=== PATIENT | male | born 1980 | race Two or more races ===

== ENCOUNTER 2024-04-22 06:40 | Day surgery (SDC) | payer MEDICAID, SELFPAY ==
[2024-04-22] VITALS (9 sets, daily range): BP systolic 111–152; BP diastolic 63–88; PULSE 62–98; RESP 10–20; TEMP 36.2–36.3; O2SAT 93–100; BMI 21.3
[2024-04-22] MEDS: SODIUM CHLORIDE 0.9% 500 ML 500 ML 100 ML IV (07:24)
[2024-04-22] MEDS: DiphenhydrAMINE INJ 50 MG/ML VIAL 25 MG IV (07:26)
[2024-04-22] MEDS: fentaNYL CIT INJ 50 mCg/ML AMP 2ML (ASD USE ONLY) IV (07:27)
[2024-04-22] MEDS: MIDAZOLAM INJ 1 MG/ML VIAL 2 ML (ASD USE ONLY) 2 MG IV (07:31)
== END 2024-04-22 08:29 | disposition home or self-care (01) ==
PROVIDERS: Referring Provider Surgery; Visit Provider Surgery
PROC: 0DBE8ZX Excision of Large Intestine, Via Natural or Artificial Opening Endoscopic, Diagnostic (ICD-10-PCS; CPT 45380; principal; 2024-04-22 08:00)
DX: C18.7 Malignant neoplasm of sigmoid colon (principal); D12.0 Benign neoplasm of cecum; D12.4 Benign neoplasm of descending colon; K56.690 Other partial intestinal obstruction; D64.9 Anemia, unspecified
CPT/HCPCS: 45380; 45385; 45381; A4649; J1200; J2250; J3010; J7040

== ENCOUNTER → 2024-05-06 | Outpatient (CLI) | payer MEDICAID, SELFPAY ==
--- NOTE | 2024-05-06 10:48 | XR_ITS ---
Examination: CT abdomen with intravenous contrast CT pelvis with intravenous contrast 2-D coronal reconstructions 2-D sagittal reconstructions Date and time of exam:May 06, 2024 1152 hrs. Indications: Diagnosis malignant neoplasm colon on colonoscopy April 23, 2024, staging, pelvic pain 6 months. CTDI: vol (mGy) 15 DLP: (mGycm) 510 Technique: Multiple axial sections of the abdomen and pelvis have been obtained. 64 slice high-resolution scanner used. 3 mm axial sections have been obtained, post intravenous injection 60 cc Isovue-370 2-D sagittal, coronal reconstructions obtained. Low dose protocols were performed. One or more of the following dose reduction techniques were used; automated exposure control, adjustment of the mA and/or KV according to patient size, use of iterative reconstruction technique. Findings: No focal liver or splenic lesions No adrenal or pancreatic mass No periaortic pericaval lymphadenopathy Negative for hydronephrosis Normal appendix Masslike area in the sigmoid colon axial image 162, transverse dimension 3.7 cm, proximal distal dimension 3.8 cm with numerous perirectal lymph nodes, the largest 8 mm Contracted urinary bladder Mild osteopenia Impression: Masslike area in the sigmoid colon, axial image 162, 3.7 x 3.8 cm with numerous perirectal lymph nodes, the largest 8 mm, consider PET CT scan staging follow-up
== END | disposition home or self-care (01) ==
PROVIDERS: PCP Physician Assistant; Referring Provider Surgery; Visit Provider Surgery
DX: K63.89 Other specified diseases of intestine (principal); C18.7 Malignant neoplasm of sigmoid colon
CPT/HCPCS: 74177; A4649; Q9967

== ENCOUNTER 2024-05-19 10:05 | Inpatient (IN) | payer MEDICAID, SELFPAY ==
--- NOTE | 2024-05-15 07:01 | EKG_ITS ---
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
[2024-05-15 10:35] VITALS: BMI 24.6
[2024-05-15 11:42] LABS: Basophils # (Auto) 0.1 Thou/mm3 (0.0-0.2); Basophils % (Auto) 1 % (0-2.5); Eosinophils # (Auto) 0.6 Thou/mm3 (0.0-0.5); Eosinophils % (Auto) 8 % (0-10); Hematocrit 43.3 % (41.0-53.0); Hemoglobin 14.6 g/dL (13.5-16.0); Immature Granulocytes % (Auto) 0 % (0-0); Immature Granulocytes Auto 0.03 Thou/mm3 (0.00-0.00); Lymphocytes % (Auto) 38 % (10-50); Mean Corpuscular HGB Conc 33.7 g/dl (31.0-37.0); Mean Corpuscular Hemoglobin 30.2 pg (25.0-35.0); Mean Corpuscular Volume 90 fL (80-100); Monocytes # (Auto) 0.6 Thou/mm3 (0.0-0.8); Monocytes % (Auto) 8 % (0-12); Neutrophils # (Auto) 3.7 Thou/mm3 (1.8-7.7); Neutrophils % (Auto) 46 % (37-80); Nucleated Red Blood Cell % 0 /100 WBC (0); Platelet Count 322 Thou/mm3 (140-440); RDW Standard Deviation 43.4 fL (35.1-43.9); Red Blood Count 4.84 Miln/mm3 (4.50-5.90)
[2024-05-15 11:58] LABS: Anion Gap 8 (7-16); BUN/Creatinine Ratio 12 Ratio (12-20); Blood Urea Nitrogen 13 mg/dL (9-23); Calcium 9.5 mg/dL (8.3-10.6); Carbon Dioxide 27.7 mMol/L (20.0-31.0); Chloride 104 mMol/L (98-107); Creatinine (Component) 1.1 mg/dL (0.6-1.3); Estimated Creatinine Clearance 93.1 mL/min (>60); Glucose 103 mg/dL (74-106); Osmolality,Calculated 279 (275-295); Potassium 4.1 mMol/L (3.4-5.1); Sodium 140 mMol/L (136-145); eGFR > 60 See Note
[2024-05-19] VITALS (23 sets, daily range): BP systolic 105–159; BP diastolic 57–98; PULSE 55–93; RESP 10–20; TEMP 35.6–37.1; O2SAT 93–100; BMI 23.9
--- NOTE | 2024-05-19 14:18 | PD.SUROPNT ---
Date of Procedure 05/19/24 Pre Op Diagnosis Malignant neoplasm of sigmoid colon Post Op Diagnosis Malignant neoplasm of sigmoid colon Procedure Laparoscopic sigmoid colectomy Laparoscopic mobilization of splenic flexure Findings Large near obstructing sigmoid tumor with blue marking clearly visible. No evidence of pelvic, omental or peritoneal nodules. Anterior surface of the liver was smooth without any nodules or lesions. Anesthesia GETA and local Pathology / specimen Other (Sigmoid colon) Estimated Blood Loss 25 Condition Stable Disposition PACU Surgeon Johnny Patton MD Surgical Staff Operation Date: 05/19/24 13:00 Case Staff GRAPPLE CREW LEADER: George Dykes RNsecurity sales manager: Lizeth Menendez
[2024-05-19] MEDS: HYDROmorphone INJ 2 MG/ML VIAL 0.5 MG IV ×2 (14:52→15:12)
[2024-05-19] MEDS: fentaNYL CIT INJ 50 mCg/ML AMP 2ML IV (15:45)
--- NOTE | 2024-05-19 16:11 | SUR.PHASEI ---
1433: Pt received in Pacu via hospital bed. Report from Connie HYATT, George BLEVINS. Pt groggy. Is arousable. Resp even, unlabored. VS stable. Surgical sites x4 to abdomen dry, clean, intact. No abnormal swelling, hematoma. Mina to gravity draining dark yellow urine. No c/o pain. 1452: Pt awake with c/o pain to abdomen. Rates pain level 10/10. VS stable. Resp even, unlabored. Pain medication given per order. 1512: Pt had been resting with no complaints. Now has c/o pain to abdomen. Rates pain level 10/10. VS stable. Resp even, unlabored. Pain medication given per order. 1515: Sister at bedside. 1545: Pt has been resting with no complaints. Is stating pain level back up at 10/10. VS stable. Resp even, unlabored. Pain medication given per orders. 1610: Pt has been resting with no further complaints. VS stable. Dressing remains dry, clean, intact.
--- NOTE | 2024-05-19 17:24 | SUR.PHASEI ---
1625: Attempting to call report to 3rd floor. Receiving RN not available. 1700: Receiving nurse available. Report given. Pt transferred to Rm 350 in stable condition.
[2024-05-19] MEDS: ACETAMINOPHEN IVPB 1,000 MG/100 ML VIAL 250 MG IV ×2 (17:57→23:30)
[2024-05-19] MEDS: CEFOXITIN 2 GM in SODIUM CHLORIDE 0.9% (Popper) 50 ML IV ×2 (18:01→23:37)
[2024-05-19] MEDS: Morphine Sulfate PF 1 MG/ML PCA VIAL 30 ML 30 MG IV (19:15)
[2024-05-19] MEDS: KCL 20 mEq/L in D5-1/2NS 20 MEQ/1,000 ML BAG 60 MEQ IV (19:27)
--- NOTE | 2024-05-19 20:32 | PC.NURSE ---
Dr. Patton notified that chart is missing code status and patient confirms that he wants to be a full code. New order received.
[2024-05-19] MEDS: ASCORBIC ACID 250 MG TABLET 500 MG PO (21:52)
[2024-05-19] MEDS: DOCUSATE SOD 100 MG CAPSULE PO (21:52)
[2024-05-20] VITALS (11 sets, daily range): BP systolic 124–142; BP diastolic 69–83; PULSE 61–90; RESP 14–19; TEMP 36.4–37.4; O2SAT 95–98; BMI 23.9
[2024-05-20] MEDS: ACETAMINOPHEN IVPB 1,000 MG/100 ML VIAL 250 MG IV ×2 (05:02→11:39)
[2024-05-20] MEDS: CEFOXITIN 2 GM in SODIUM CHLORIDE 0.9% (Popper) 50 ML IV ×2 (05:32→11:39)
[2024-05-20] MEDS: ZINC SULFATE 220 MG CAPSULE PO (08:11)
[2024-05-20] MEDS: DOCUSATE SOD 100 MG CAPSULE PO ×2 (08:11→20:06)
[2024-05-20] MEDS: ASCORBIC ACID 250 MG TABLET 500 MG PO ×2 (08:12→20:06)
--- NOTE | 2024-05-20 08:21 | PD.SURPROG ---
Documentation for date of: 05/20/24 Subjective Subjective Narrative: Patient is seen and examined. He is resting. He is complaining of incisional pain controlled with TENNIS PROFESSIONAL. He denies nausea or vomiting Exam Vital Signs Temp Pulse Resp BP Pulse Ox O2 Del Method O2 Flow Rate 97.6 F 90 18 126/69 98 Nasal Cannula 2 05/20/24 07:29 05/20/24 07:50 05/20/24 08:00 05/20/24 07:29 05/20/24 07:50 05/20/24 07:29 05/20/24 07:29 Constitutional Constitutional: no acute distress Routine Abdominal Exam Comments: Abdomen is soft and minimally distended. He has hypoactive bowel sounds. Incisions with dressings clean, dry and intact Assessment & Plan Assessment Additional comments: Postop day #1 status post laparoscopic sigmoid colectomy Plan DC Mina catheter. Will start patient on clear liquids. He is advised to increase ambulation and use incentive spirometer Procedures Procedures Laparoscopic sigmoid colectomy Laparoscopic mobilization of splenic flexure
--- NOTE | 2024-05-20 09:10 | CHAP ---
Visited with patient giving encouragement and prayer.
[2024-05-20] MEDS: KCL 20 mEq/L in D5-1/2NS 20 MEQ/1,000 ML BAG 30 MEQ IV (11:38)
[2024-05-20] MEDS: Morphine Sulfate PF 1 MG/ML PCA VIAL 30 ML 30 MG IV (20:06)
[2024-05-20] MEDS: ATORVASTATIN CALCIUM 20 MG TABLET 40 MG PO (20:06)
[2024-05-21] VITALS (9 sets, daily range): BP systolic 111–131; BP diastolic 79–86; PULSE 63–96; RESP 13–23; TEMP 36.2–37; O2SAT 93–96
[2024-05-21] MEDS: KCL 20 mEq/L in D5-1/2NS 20 MEQ/1,000 ML BAG 30 MEQ IV (00:46)
[2024-05-21] MEDS: ZINC SULFATE 220 MG CAPSULE PO (09:09)
[2024-05-21] MEDS: DOCUSATE SOD 100 MG CAPSULE PO ×2 (09:09→21:36)
[2024-05-21] MEDS: ASCORBIC ACID 250 MG TABLET 500 MG PO ×2 (09:09→21:36)
[2024-05-21 09:40] LABS: Basophils % (Auto) 0 % (0-2.5); Eosinophils # (Auto) 0.1 Thou/mm3 (0.0-0.5); Eosinophils % (Auto) 1 % (0-10); Hematocrit 38.6 % (41.0-53.0); Hemoglobin 13.2 g/dL (13.5-16.0); Immature Granulocytes % (Auto) 0 % (0-0); Immature Granulocytes Auto 0.03 Thou/mm3 (0.00-0.00); Lymphocytes # (Auto) 2.2 Thou/mm3 (1.0-4.8); Lymphocytes % (Auto) 23 % (10-50); Mean Corpuscular HGB Conc 34.2 g/dl (31.0-37.0); Mean Corpuscular Hemoglobin 30.3 pg (25.0-35.0); Mean Corpuscular Volume 89 fL (80-100); Monocytes # (Auto) 1.2 Thou/mm3 (0.0-0.8); Monocytes % (Auto) 12 % (0-12); Neutrophils % (Auto) 63 % (37-80); Nucleated Red Blood Cell % 0 /100 WBC (0); Platelet Count 262 Thou/mm3 (140-440); RDW Standard Deviation 42.8 fL (35.1-43.9); Red Blood Count 4.35 Miln/mm3 (4.50-5.90); White Blood Count 9.5 Thou/mm3 (3.8-10.6)
[2024-05-21 10:02] LABS: Anion Gap 9 (7-16); BUN/Creatinine Ratio 10 Ratio (12-20); Blood Urea Nitrogen 11 mg/dL (9-23); Calcium 8.7 mg/dL (8.3-10.6); Calcium (Corrected) 8.7 mg/dL (8.5-10.1); Carbon Dioxide 26.4 mMol/L (20.0-31.0); Chloride 103 mMol/L (98-107); Creatinine (Component) 1.1 mg/dL (0.6-1.3); Estimated Creatinine Clearance 93.1 mL/min (>60); Glucose 118 mg/dL (74-106); Magnesium 1.9 mg/dL (1.6-2.6); Osmolality,Calculated 276 (275-295); Phosphorous 2.4 mg/dL (2.4-5.1); Potassium 3.7 mMol/L (3.4-5.1); Sodium 138 mMol/L (136-145); eGFR > 60 See Note
--- NOTE | 2024-05-21 11:15 | PD.SURPROG ---
Documentation for date of: 05/21/24 Subjective Subjective Narrative: Patient is seen and examined. Pain is improving. His Mina catheter was removed, he has been voiding without difficulty. He is tolerating clear liquids and passing flatus Exam Vital Signs Temp Pulse Resp BP Pulse Ox O2 Del Method O2 Flow Rate 97.1 F 70 18 129/83 96 Room Air 2 05/21/24 07:50 05/21/24 07:50 05/21/24 07:50 05/21/24 07:50 05/21/24 07:50 05/21/24 07:50 05/20/24 19:07 Constitutional Constitutional: no acute distress Routine Abdominal Exam Comments: Abdomen is soft and minimally distended. Bowel sounds are present. Incisions with dressings clean, dry and intact Assessment & Plan Assessment Additional comments: Postop day #2 status post laparoscopic sigmoid colectomy Plan Will advance to full liquids with Ensure supplements. Increase ambulation. Procedures Procedures Laparoscopic sigmoid colectomy Laparoscopic mobilization of splenic flexure
--- NOTE | 2024-05-21 13:42 | PC.SS ---
Pk Dent is a 44-year-old male admitted to [facility] for Lap Poss Open Sigm [phone]. SS conducted bedside contact with the patient to complete initial assessment and to discuss discharge planning.? Patient confirmed demographic information. Patient identifies his sister Christiane Salazar [phone] ?as his surrogate decision maker. Patient resides at home with his brother and family. Pt states he is able to complete all ADL?s independently, no need for any source of DME. Pts PCP is Tarun SPAULDING (last visit about 1 week ago) and pharmacy of choice is [facility]. DC option discussed and pt wishes to return home. Pts fam will provide transportation upon DC. No further intervention required at this time, social worker clinical would be available to address any further concerns. DC Plan: Home Contact: Sister Christiane PCP: Filipe
--- NOTE | 2024-05-21 15:18 | PC.SS ---
Rounding: POD #1 increase ambulation and diet as tolerated
[2024-05-21] MEDS: ATORVASTATIN CALCIUM 20 MG TABLET 40 MG PO (21:36)
[2024-05-22] VITALS: BP 129/81; PULSE 70; RESP 18; TEMP 36.3; O2SAT 95
[2024-05-22 04:00] VITALS: BP 130/78; PULSE 69; RESP 18; TEMP 36.3; O2SAT 97
[2024-05-22 04:50] VITALS: PULSE 71; RESP 18; O2SAT 95
[2024-05-22 07:47] VITALS: PULSE 71; RESP 18; O2SAT 97
[2024-05-22 07:58] VITALS: BP 125/82; PULSE 77; RESP 16; TEMP 36.9; O2SAT 95
[2024-05-22] MEDS: ASCORBIC ACID 250 MG TABLET 500 MG PO (08:04)
[2024-05-22] MEDS: ZINC SULFATE 220 MG CAPSULE PO (08:04)
[2024-05-22] MEDS: DOCUSATE SOD 100 MG CAPSULE PO (08:04)
--- NOTE | 2024-05-22 11:57 | ESDS_ITS ---
Planned Discharge Date 05/22/24 DS: Providers Provider Date of admission: 05/19/24 10:05 Primary care physician: Baljit Dent MD Admitting Provider: Johnny Patton MD Attending Provider on Admission: Johnny Patton MD Attending Provider on DC: Johnny Patton MD Discharging Provider: Johnny Patton MD Diagnosis Problem List Completed Was Problem List Reviewed/Reconciled?: Yes Hospital Course Brief History: 44-year-old male was found to have adenocarcinoma of sigmoid colon. CT scan did not show evidence of metastatic disease. Patient underwent laparoscopic assisted sigmoid colectomy with laparoscopic mobilization of splenic flexure. His Mina catheter was removed on postop day #1, he was able to void without difficulty. He was started on clear liquids and his diet was gradually advanced to soft diet. He was eating and tolerating diet well without nausea or vomiting. He started passing flatus and had bowel movements. His incisions are clean, dry and intact. He has remained hemodynamically stable and afebrile throughout hospitalization. He is being discharged home in stable condition. Status at Discharge Functional status at discharge: independent ambulation Overall status at discharge: patient is progressing back to baseline Exam Vital Signs Temp Pulse Resp BP Pulse Ox O2 Del Method O2 Flow Rate 98.4 F 77 16 125/82 95 Room Air 2 05/22/24 07:58 05/22/24 07:58 05/22/24 07:58 05/22/24 07:58 05/22/24 07:58 05/22/24 07:58 05/20/24 19:07 Constitutional Constitutional: no acute distress Routine Abdominal Exam Comments: Abdomen is soft and nondistended. He has active bowel sounds. Incisions are clean, dry and intact Discharge Plan Plan Patient Disposition: HOME (Self Care) Prescriptions/Referrals Prescriptions/Med Rec: New ascorbic acid (vitamin C) [Vitamin C] 250 mg Tablet 500 mg PO BID Qty: 60 0RF hydrocodone-acetaminophen 7.5-325 mg Tablet 1 tab PO Q6HR MDD 4 PRN (Reason: pain (scale score 7-10)) Qty: 20 0RF docusate sodium 100 mg Capsule 100 mg PO BID Qty: 40 0RF zinc sulfate 50 mg zinc (220 mg) Capsule 220 mg PO QDAY Qty: 30 0RF Continued atorvastatin 40 mg tablet 40 mg PO HS Patient Comments: TAKE 1 TABLET BY MOUTH EVERYDAY AT BEDTIME fenofibrate micronized 67 mg capsule 67 mg PO DAILY Patient Comments: TAKE 1 CAPSULE BY MOUTH EVERY DAY WITH A MEAL FOR 30 DAYS Referrals: Baljit Dent MD [Primary Care Provider] - Patient/Caregiver Discharge Instructions Discharge Activity: activity as tolerated Print Language: Korean Activity Restrictions/Additional Instructions: May shower in 24 hours. Wear abdominal binder at all times, make sure binder is covering the right lower abdominal incision. Avoid lifting, straining, pulling or pushing for 6 weeks. May take over the counter laxatives if no bowel movement in 2 days. Follow up with Dr. Patton at [facility] in 2 weeks, please call for an appointment. Continue soft diet for 1 week then advance diet as tolerated. Stand Alone Forms: [employer] Award Info., Patient Portal Info Letter Discharge Order Discharge Orders: Discharge (Routine); Ordered 05/22/24 Ordered By: Johnny Patton Procedures Procedure Date 05/19/24 Procedures Laparoscopic sigmoid colectomy Laparoscopic mobilization of splenic flexure
[2024-05-22 12:00] VITALS: BP 116/83; PULSE 77; RESP 16; TEMP 36.2; O2SAT 95
--- NOTE | 2024-05-22 12:00 | CHAP ---
Patient was visited by the Spiritual Care Volunteer who prayed for them. (Volunteer was in the hospital from 10:00-12:00)
== END 2024-05-22 13:51 | disposition home or self-care (01) | DRG 231 ==
PROVIDERS: Admitting Provider Surgery; PCP Family Medicine; Visit Provider Surgery
PROC: 0DTN4ZZ Resection of Sigmoid Colon, Percutaneous Endoscopic Approach (ICD-10-PCS; principal; 2024-05-19 12:45)
DX: C18.7 Malignant neoplasm of sigmoid colon (principal)
CPT/HCPCS: 36415; 80048; 80069; 83735; 85025; 93005; 94664; A4217; A4649; J0131; J0694; J0696; J1100; J2250; J2270; J2405; J2704; J3010; J3480; J3490; J7050; A9270

== ENCOUNTER 2024-06-18 10:50 | Outpatient (RCR) | payer BC, SELFPAY ==
--- NOTE | 2024-06-18 12:10 | CTCCONSULT_ITS ---
[facility] [address] [place], [place] [address] Consultation Note Date: 06/18/2024 MR#: [id number] Name: GABBY REZA : 1980 Dx: C18.7 Malignant neoplasm of sigmoid colon Attending physician. [facility] Referring physician. Johnny Patton MD Reason for consultation. Patient with invasive adenocarcinoma of the sigmoid colon region status post sigmoid colectomy referred to the cancer treatment center. History of Present Illness: Patient is a pleasant 44-year-old gentleman following colonoscopy 04/22/2024 to investigate lower GI bleeding, and 2 small polyps from the cecum and 1 small polyp in ascending colon removed along with likely malignant partially obstructing tumor in the sigmoid colon. Patient was discovered to have well differentiated adenocarcinoma at least superficially invasive with extensive stromal reaction. There were cecal polyp revealing tubular adenoma along with descending colon polyp which were both negative for high-grade dysplasia. Abdominal pelvis CT scan 05/06/2024 revealed masslike area sigmoid colon with numerous perirectal lymph nodes the largest 8 mm. On 05/19/2024 patient underwent laparoscopic sigmoid colectomy performed by Dr. Patton revealing invasive adenocarcinoma well-differentiated tumor size 7 x 4.9 x 1 cm G1 well-differentiated with tumor extension to the subserosal adipose tissue. Margins negative lymphovascular vision not seen perineural invasion negative. There was no loss of expression in all 4 mismatch repair proteins. 18 benign lymph nodes pT3pN0 stage IIa. Past Medical History: Pancreatitis hypercholesterolemia Meds. 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 Denies any cancer or colon cancer in family. Review of Systems: Has experienced anxiety blood in bowel movements prior to surgery nausea pain in pelvic area since the surgery. Physical Exam: General: Adequate nourished appearing gentleman in no acute distress HEENT: Atraumatic normocephalic extraocular is intact no oral lesions no cervical or supraclavicular adenopathy CV: Chest clear to station heart regular rate and rhythm ABD: Soft no organomegaly tenderness EXT: No signs of clubbing or edema Assessment:#1. Stage IIA pT3pN0 invasive adenocarcinoma well-differentiated sigmoid colon CA status post laparoscopic sigmoid colectomy 05/19/[address] Patton. Clear margins, negative lymphovascular invasion, no loss of expression all 4 mismatch repair proteins #2. Patient does not appear to have any high risk features noted in pathology along with having adequate number (18) of lymph nodes sampled. #3. Will refer patient to Dr. Jaramillo medical oncologist. #4. Patient running low on pain meds prescribed following surgery which he still needs.. I renewed his [place] 5. #5. Thank you very much for allowing me to evaluate this very nice patient. Cc: [facility] Johnny Patton MD Electronically signed by: Dio Baig MD, DABR 06/18/2024 12:08 PM
== END 2024-06-24 23:59 | disposition home or self-care (01) ==
LOC: SCTC 10:50
PROVIDERS: PCP Physician Assistant; Referring Provider Surgery; Visit Provider Radiology Therapeutic Radiology
DX: C18.7 Malignant neoplasm of sigmoid colon (principal); Z90.49 Acquired absence of other specified parts of digestive tract
CPT/HCPCS: 99213; G0463

== ENCOUNTER 2024-07-14 09:03 | Outpatient (RCR) | payer BC, SELFPAY ==
--- NOTE | 2024-07-21 09:27 | CTCCONSULT_ITS ---
Patient: GABBY REZA : 1980 MR#: [id number] Page 4 of 5 CONSULTATION NOTE DATE OF CONSULTATION: 07/14/2024 NAME: GABBY REZA ACCOUNT: [id number] : 1980 AGE: 44 REFERRING PHYSICIAN: Johnny Patton MD PRIMARY PHYSICIAN: REASON FOR VISIT: Chief Complaint Follow-up for stage 2 colon cancer treatment after surgery, discussion of chemotherapy options History of Present Illness Filipe Whittington presents with a history of stage 2 colon cancer, diagnosed in March following persistent stomach pain and rectal bleeding since October of the previous year. The patient reports experiencing stomach pain and bloody stools starting last October, which led to four emergency room visits between October and March. During these visits, only ultrasounds were performed, which did not reveal any abnormalities. In March, the patient received a referral for a colonoscopy with Dr. Martin Whitehead, which revealed a tumor in the large intestine. Surgery was performed a week later, confirming stage 2 cancer. The surgery involved the removal of 18 lymph nodes, all of which were clear of cancer. The patient reports that prior to surgery, he experienced low hemoglobin levels and bloody, narrow stools. Since the surgery, the patient's stools have returned to normal. The patient is now presenting for discussion of chemotherapy to reduce the risk of cancer recurrence. He understands that even though the surgery removed the visible tumor, there is a possibility of remaining cancer cells in the blood. The patient is aware that chemotherapy for stage 2 colon cancer can reduce the risk of recurrence by 10-15%. Medications and Supplements - NSAIDs (ibuprofen, Aleve) - Can damage kidneys - Help prevent colon cancer Review of Systems Gastrointestinal: Negative for stomach pain, bloody stools, narrow stools. Hematological/Lymphatic: Negative for anemia symptoms. ONCOLOGY HISTORY: DIAGNOSIS: Malignant neoplasm of sigmoid colon [ICD10] C18.7 DATE OF DIAGNOSIS: STAGE/TNM: TREATMENT HISTORY: Care?Plan Start?Date Cycle Day Intent HISTORY OF PRESENT ILLNESS: 44-year-old male Chief Complaint Follow-up for stage 2 colon cancer treatment after surgery, discussion of chemotherapy options History of Present Illness Filipe Whittington presents with a history of stage 2 colon cancer, diagnosed in March following persistent stomach pain and rectal bleeding since October of the previous year. The patient reports experiencing stomach pain and bloody stools starting last October, which led to four emergency room visits between October and March. During these visits, only ultrasounds were performed, which did not reveal any abnormalities. In March, the patient received a referral for a colonoscopy with Dr. Martin Whitehead, which revealed a tumor in the large intestine. Surgery was performed a week later, confirming stage 2 cancer. The surgery involved the removal of 18 lymph nodes, all of which were clear of cancer. The patient reports that prior to surgery, he experienced low hemoglobin levels and bloody, narrow stools. Since the surgery, the patient's stools have returned to normal. The patient is now presenting for discussion of chemotherapy to reduce the risk of cancer recurrence. He understands that even though the surgery removed the visible tumor, there is a possibility of remaining cancer cells in the blood. The patient is aware that chemotherapy for stage 2 colon cancer can reduce the risk of recurrence by 10-15%. Medications and Supplements - NSAIDs (ibuprofen, Aleve) - Can damage kidneys - Help prevent colon cancer Review of Systems Gastrointestinal: Negative for stomach pain, bloody stools, narrow stools. Hematological/Lymphatic: Negative for anemia symptoms. Laboratory, Imaging, and Diagnostic Test Results - Colonoscopy (March 2024): Revealed tumor in large intestine - Pathology report: - Tumor size: 7 cm x 4.9 cm x 1 cm - Tumor invasion: Invading muscular propria into pericolorectal tissue - Histology: Well-differentiated adenocarcinoma with extensive stromal reaction - Staging: T3N0M0 - Lymph nodes: 18 removed, all clear - Margins: Proximal negative, distal negative, mesenteric negative - Lymphovascular invasion: Not seen - Perineural invasion: Not seen - Tubular invasion: Not seen - Hemoglobin: Low (value not specified) OTHER MEDICAL HISTORY/CONDITIONS: Invasive Adenocarcinoma colon - dx 04/22/24 Hyperlipidemia Anemia Depression Laproscopic Sigmoid colectomy with mobilization of splenic flexure- 05/19/24 - Dr. 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 Tobacco?Use:?Denies ETOH?Use:?Socially Drug?Note:?Denies Social History Note:?Lives with girlfriend and brother MEDICATIONS: 1. atorvastatin - 40 mg 1 tab Daily 2. Fenofibrate - 67 mg 1 Capsule Daily 3. HYDROcodone-acetaminophen - 7.5-325 mg 1 tab three times a day Medications Last Reconciled by Hailey Mortensen RN on 07/14/2024 ALLERGIES: No Known Drug Allergies REVIEW OF SYSTEMS: A complete 14-point review of systems was performed and is negative except as noted in interval history. PHYSICAL EXAMINATION: VITAL SIGNS: B/P?142/88, Height?72?inches, Oxygen?Saturation?100% Weight?169?lbs (Change?since?06/18/24:?6?lbs) PAIN: 0 - No pain ECOG Performance Status: None GENERAL APPEARANCE: Appears well, in no apparent distress, appropriately interactive. HEENT: Normocephalic, no temporal wasting, normal conjunctiva, no scleral icterus, normal hearing, lips without lesions, neck normal range of motion. CARDIOVASCULAR: Not assessed. PULMONARY: Normal respiratory effort, no respiratory distress or use of accessory muscles, speaking in full sentences, no tachypnea. EXTREMITIES: No pedal edema or cyanosis. SKIN: Normal skin appearance. NEUROLOGIC: Alert and oriented x4. PSHYCHIATRIC: Appropriate affect, mood normal, behavior normal, intact thought and speech. LABORATORY DATA: I have personally reviewed and interpreted each of the patient?s relevant lab tests, abnormal findings are below: Date ASSESSMENT/PLAN: Filipe Whittington, male patient with history of stage 2 colon cancer status post surgical resection, presenting for discussion of adjuvant chemotherapy. Stage 2 Colon Cancer Assessment: Patient diagnosed with stage 2 colon cancer in March following colonoscopy. Surgical resection performed with removal of 18 lymph nodes, all clear. Pathology report indicates T3N0M0 staging, with a 7 cm x 4.9 cm x 1 cm well-differentiated adenocarcinoma invading the muscular propria into pericolorectal tissue. Extensive stromal reaction noted. No lymphovascular invasion, perineural invasion, or vascular invasions reported. Margins (proximal, distal, mesenteric) negative. Patient classified as low risk based on pathology findings. Pre-operative symptoms included abdominal pain, bloody narrow stools, and low hemoglobin, which have since resolved post-surgery. Plan: - Initiate adjuvant chemotherapy with capecitabine for 3 months - Dosing schedule: 2 weeks on, 2 weeks off, for 3 sets of 14 days - Prescription to be sent - Order Dami testing prior to treatment initiation to check for genetic markers and circulating tumor cells - Schedule telephone appointment for follow-up - Obtain insurance approval for medications - Initiate daily baby aspirin after completion of chemotherapy for colon cancer prevention - Dietary recommendations: - Avoid preserved foods with nitrates - Encourage consumption of fresh foods - Patient education provided: - Chemotherapy aims to reduce recurrence risk by 10-15% - Rationale for chemotherapy despite clear surgical margins - Importance of aspirin in decreasing colon cancer risk - Potential kidney damage from NSAIDs (ibuprofen, Aleve) ? Capecitabine (Xeloda)?1250 mg/m2?PO twice per day on days 1 to 14 --------21-day cycle for 8 cycles ORDERS: Order # Description RETURN TO CLINIC: BILLING AND COMPLIANCE: I reviewed external records from providers outside my specialty as summarized above. I spent a total of 50 minutes on this patient?s care on the day of their visit excluding time spent related to any billed procedures. This time includes time spent with the patient as well as time spent documenting in the medical record, reviewing patients records and tests, obtaining history, placing orders, communicating with other healthcare professionals, counseling the patient, family or caregiver, and/or care coordination for the diagnoses above. Electronically Signed by: {Object.Sanct_ID*PnP.NameFL@M}, {Object.Sanct_ID*PnP.Suffix@U} D: {Object.Sanct_Date} T: {Object.Sanct_Time} CC: PCP: Referring: Johnny Patton This document was completed utilizing speech recognition software. Grammatical errors, random word insertions, pronoun errors, and incomplete sentences are an occasional consequence of this system due to software limitations, ambient noise, and hardware issues. Any formal questions or concerns about the content, text or information contained within the body of this dictation should be directly addressed to the provider for clarification.
== END 2024-07-25 23:59 | disposition home or self-care (01) ==
LOC: SCTC 09:03
PROVIDERS: PCP Physician Assistant; Referring Provider Physician Assistant; Visit Provider Internal Medicine Hematology & Oncology
DX: C18.7 Malignant neoplasm of sigmoid colon (principal)
CPT/HCPCS: 99213; G0463

== ENCOUNTER 2024-08-11 10:04 | Outpatient (RCR) | payer BC, SELFPAY ==
[2024-07-29 09:35] LABS: Alanine Aminotransferase 26 U/L (10-49); Albumin, Serum 4.4 gm/dL (3.5-5.0); Albumin/Globulin Ratio 1.6 (1.2-2.2); Alkaline Phosphatase 72 U/L (46-116); Anion Gap 11 (7-16); Aspartate Amino Transferase 18 U/L (0-34); BUN/Creatinine Ratio 10 Ratio (12-20); Bilirubin,Total 0.6 mg/dL (0.3-1.2); Blood Urea Nitrogen 10 mg/dL (9-23); Calcium 8.6 mg/dL (8.3-10.6); Calcium (Corrected) 8.6 mg/dL (8.5-10.1); Carbon Dioxide 26.2 mMol/L (20.0-31.0); Chloride 105 mMol/L (98-107); Globulin 2.7 gm/dL (2.3-3.5); Glucose 105 mg/dL (74-106); Osmolality,Calculated 282 (275-295); Potassium 3.6 mMol/L (3.4-5.1); Sodium 142 mMol/L (136-145); Total Protein 7.1 gm/dL (5.7-8.2); eGFR > 60 See Note
[2024-07-29 09:55] LABS: Basophils % (Auto) 1 % (0-2.5); Eosinophils # (Auto) 0.4 Thou/mm3 (0.0-0.5); Eosinophils % (Auto) 6 % (0-10); Hematocrit 40.8 % (41.0-53.0); Immature Granulocytes % (Auto) 0 % (0-0); Immature Granulocytes Auto 0.01 Thou/mm3 (0.00-0.00); Lymphocytes # (Auto) 2.2 Thou/mm3 (1.0-4.8); Lymphocytes % (Auto) 40 % (10-50); Mean Corpuscular HGB Conc 34.3 g/dl (31.0-37.0); Mean Corpuscular Hemoglobin 30.4 pg (25.0-35.0); Mean Corpuscular Volume 89 fL (80-100); Monocytes # (Auto) 0.5 Thou/mm3 (0.0-0.8); Monocytes % (Auto) 10 % (0-12); Neutrophils # (Auto) 2.4 Thou/mm3 (1.8-7.7); Neutrophils % (Auto) 44 % (37-80); Nucleated Red Blood Cell % 0 /100 WBC (0); Platelet Count 261 Thou/mm3 (140-440); RDW Standard Deviation 42.5 fL (35.1-43.9); Red Blood Count 4.61 Miln/mm3 (4.50-5.90); White Blood Count 5.5 Thou/mm3 (3.8-10.6)
[2024-07-29 10:14] LABS: Carcinoembryonic Antigen 1.8 ng/mL (0.0-5.0)
--- NOTE | 2024-08-11 13:16 | CTCFLWUP_ITS ---
Patient: PK DENT : 1980 Page 2 of 2 FOLLOW UP NOTE DATE OF SERVICE: 08/11/2024 NAME: PK DENT ACCOUNT: [id number] : 1980 AGE: 44 INTERVAL HISTORY: Subjective: Chief Complaint Oncology follow-up for cancer treatment, medication discussion for capecitabine History of Present Illness Pk Dent presents for follow-up of his cancer treatment. The patient is currently considering treatment options for his condition, specifically discussing the use of capecitabine. Mr. Dent expresses a preference for oral medication over infusion therapy, citing that he doesn't want infusion treatment. The oncologist has recommended a treatment regimen of capecitabine 500 mg, with 5 tablets to be taken twice daily for 14 days, followed by 7 days off, for a total of 8 cycles over 3 months. This amounts to 10 tablets per day during the on periods. The patient inquires about his ability to continue working while on this medication. He also expresses interest in potentially applying for disability. Mr. Dent is concerned about the cost and availability of the medication, discussing various pharmacy options and the use of coupons to reduce the andersen. Medications and Supplements - Capecitabine 500 mg, 5 tablets twice a day for 14 days, followed by 7 days off. - Prescribed for 8 cycles (3 months). ONCOLOGY HISTORY: DIAGNOSIS: Malignant neoplasm of sigmoid colon [ICD10] C18.7 DATE OF DIAGNOSIS: 05/19/2024 STAGE/TNM: T3 N0 M0 MMR intact TREATMENT HISTORY: Care?Plan Start?Date Cycle Day Intent Capecitabine 1250 mg/m? twice daily 2 weeks on 1 week of every 21 days for 3 months HISTORY OF PRESENT ILLNESS: 44-year-old male Chief Complaint Follow-up for stage 2 colon cancer treatment after surgery, discussion of chemotherapy options History of Present Illness Filipe Whittington presents with a history of stage 2 colon cancer, diagnosed in March following persistent stomach pain and rectal bleeding since October of the previous year. The patient reports experiencing stomach pain and bloody stools starting last October, which led to four emergency room visits between October and March. During these visits, only ultrasounds were performed, which did not reveal any abnormalities. In March, the patient received a referral for a colonoscopy with Dr. Martin Whitehead, which revealed a tumor in the large intestine. Surgery was performed a week later, confirming stage 2 cancer. The surgery involved the removal of 18 lymph nodes, all of which were clear of cancer. The patient reports that prior to surgery, he experienced low hemoglobin levels and bloody, narrow stools. Since the surgery, the patient's stools have returned to normal. The patient is now presenting for discussion of chemotherapy to reduce the risk of cancer recurrence. He understands that even though the surgery removed the visible tumor, there is a possibility of remaining cancer cells in the blood. The patient is aware that chemotherapy for stage 2 colon cancer can reduce the risk of recurrence by 10-15%. Medications and Supplements - NSAIDs (ibuprofen, Aleve) - Can damage kidneys - Help prevent colon cancer Review of Systems Gastrointestinal: Negative for stomach pain, bloody stools, narrow stools. Hematological/Lymphatic: Negative for anemia symptoms. Laboratory, Imaging, and Diagnostic Test Results - Colonoscopy (March 2024): Revealed tumor in large intestine - Pathology report: - Tumor size: 7 cm x 4.9 cm x 1 cm - Tumor invasion: Invading muscular propria into pericolorectal tissue - Histology: Well-differentiated adenocarcinoma with extensive stromal reaction - Staging: T3N0M0 - Lymph nodes: 18 removed, all clear - Margins: Proximal negative, distal negative, mesenteric negative - Lymphovascular invasion: Not seen - Perineural invasion: Not seen - Tubular invasion: Not seen - Hemoglobin: Low (value not specified) OTHER MEDICAL HISTORY/CONDITIONS: Invasive Adenocarcinoma colon - dx 04/22/24 Hyperlipidemia Anemia Depression Laproscopic Sigmoid colectomy with mobilization of splenic flexure- 05/19/24 - Dr. 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 Tobacco?Use:?Denies ETOH?Use:?Socially Drug?Note:?Denies Social History Note:?Lives with girlfriend and brother MEDICATIONS: 1. atorvastatin - 40 mg 1 tab Daily 2. capecitabine - 500 mg 5 tab twice a day 3. Fenofibrate - 67 mg 1 Capsule Daily 4. HYDROcodone-acetaminophen - 7.5-325 mg 1 tab three times a day Medications Last Reconciled by Lisandra Ro MA on 08/11/2024 ALLERGIES: No Known Drug Allergies REVIEW OF SYSTEMS: A complete 14-point review of systems was performed and is negative except as noted in interval history. PHYSICAL EXAMINATION: VITAL SIGNS: Temperature?98.2, B/P?128/83, Oxygen?Saturation?99% PAIN: 0 - No pain ECOG Performance Status: 0 - Asymptomatic and fully active GENERAL APPEARANCE: Appears well, in no apparent distress, appropriately interactive. HEENT: Normocephalic, no temporal wasting, normal conjunctiva, no scleral icterus, normal hearing, lips without lesions, neck normal range of motion. CARDIOVASCULAR: Not assessed. PULMONARY: Normal respiratory effort, no respiratory distress or use of accessory muscles, speaking in full sentences, no tachypnea. EXTREMITIES: No pedal edema or cyanosis. SKIN: Normal skin appearance. NEUROLOGIC: Alert and oriented x4. PSHYCHIATRIC: Appropriate affect, mood normal, behavior normal, intact thought and speech. LABORATORY DATA: I have personally reviewed and interpreted each of the patient?s relevant lab tests, abnormal findings are below: Date 07/29/24 ??WHITE?BLOOD?COUNT?(Thou/mm3) 5.5 ??RED?BLOOD?COUNT?(Miln/mm3) 4.61 ??HEMOGLOBIN?(gm/dl) 14.0 ??HEMATOCRIT?(%) 40.8?L ??PLATELET?COUNT?(Thou/mm3) 261 ??NEUTROPHILS?%,?AUTO?(%) 44 ??LYMPH?%,?AUTO?(%) 40 ??NEUTROPHILS,?AUTO?(Thou/mm3) 2.4 ??GLUCOSE,RANDOM?(mg/dL) 105 ??BLOOD?UREA?NITROGEN?(mg/dL) 10 ??CREATININE?(mg/dL) 1.00 ??SODIUM?(mmol/L) 142 ??POTASSIUM?(mmol/L) 3.6 ??CHLORIDE?(mmol/L) 105 ??CrCl?(CandG)?(ml/min) 103.90 ??AST/SGOT?(Unit/L) 18 ??ALT/SGPT?(Unit/L) 26 ??ALKALINE?PHOSPHATASE?(Unit/L) 72 ??BILIRUBIN,?TOTAL?(mg/dL) 0.6 ??PROTEIN?TOTAL?(gm/dl) 7.1 ??ALBUMIN,?SERUM?(gm/dl) 4.4 ??GLOBULIN?(gm/dl) 2.7 ??ALBUMIN/GLOBULIN?RATIO 1.6 ??CALCIUM,?SERUM?(mg/dL) 8.6 ??CALCIUM?SERUM?(CORRECTED)?(mg/dL) 8.6 ??CEA?(O*)?(ng/ml) 1.8 ASSESSMENT/PLAN: Filipe Whittington, male patient with history of stage 2 colon cancer status post surgical resection, presenting for discussion of adjuvant chemotherapy. Stage 2 Colon Cancer Assessment: Patient diagnosed with stage 2 colon cancer in March following colonoscopy. Surgical resection performed with removal of 18 lymph nodes, all clear. Pathology report indicates T3N0M0 staging, with a 7 cm x 4.9 cm x 1 cm well-differentiated adenocarcinoma invading the muscular propria into pericolorectal tissue. Extensive stromal reaction noted. No lymphovascular invasion, perineural invasion, or vascular invasions reported. Margins (proximal, distal, mesenteric) negative. Patient classified as low risk based on pathology findings. Pre-operative symptoms included abdominal pain, bloody narrow stools, and low hemoglobin, which have since resolved post-surgery. Plan: - Initiate adjuvant chemotherapy with capecitabine for 3 months A wild testing was completed Patient unable to procure drug scan due to insurance issue - Patient education provided: - Chemotherapy aims to reduce recurrence risk by 10-15% - Rationale for chemotherapy despite clear surgical margins - Capecitabine (Xeloda)?1250 mg/m2?PO twice per day on days 1 to 14 --------21-day cycle for 8 cycles . The treatment plan involves 8 cycles of capecitabine, with each cycle consisting of 14 days on medication followed by 7 days off. The total duration of treatment is expected to be 3 months. Plan: - Prescribe capecitabine 500 mg, 5 tablets (2500 mg) PO BID for 14 days, followed by 7 days off, for 8 cycles - Total prescription: 140 tablets - Provide patient with [employer] coupon for reduced medication cost at local pharmacy - Discuss potential for disability status - Follow up to ensure medication access and tolerability ORDERS: Order # Description [id number] Comprehensive Metabolic Panel - 12 + CBC with Auto Diff + CEA + MD Follow Up 2 Months RETURN TO CLINIC: BILLING AND COMPLIANCE: I reviewed external records from providers outside my specialty as summarized above. I spent a total of 50 minutes on this patient?s care on the day of their visit excluding time spent related to any billed procedures. This time includes time spent with the patient as well as time spent documenting in the medical record, reviewing patients records and tests, obtaining history, placing orders, communicating with other healthcare professionals, counseling the patient, family or caregiver, and/or care coordination for the diagnoses above. Electronically Signed by: Eder Jaramillo MD T: 1:14 PM CC: Lala?Ermias,?Neil,? PCP: Referring: Neil Monson Alisia This document was completed utilizing speech recognition software. Grammatical errors, random word insertions, pronoun errors, and incomplete sentences are an occasional consequence of this system due to software limitations, ambient noise, and hardware issues. Any formal questions or concerns about the content, text or information contained within the body of this dictation should be directly addressed to the provider for clarification.
== END 2024-08-24 23:59 | disposition home or self-care (01) ==
LOC: SCTC 10:04
PROVIDERS: PCP Physician Assistant; Referring Provider Physician Assistant; Visit Provider Internal Medicine Hematology & Oncology
DX: C18.7 Malignant neoplasm of sigmoid colon (principal)
CPT/HCPCS: 36415; 80053; 82378; 85025; 99212; G0463

== ENCOUNTER → 2024-08-20 | Outpatient (CLI) | payer BC, SELFPAY ==
[2024-08-20 09:59] LABS: Basophils # (Auto) 0.1 Thou/mm3 (0.0-0.2); Basophils % (Auto) 1 % (0-2.5); Eosinophils # (Auto) 0.3 Thou/mm3 (0.0-0.5); Eosinophils % (Auto) 4 % (0-10); Hematocrit 42.6 % (41.0-53.0); Immature Granulocytes % (Auto) 0 % (0-0); Immature Granulocytes Auto 0.01 Thou/mm3 (0.00-0.00); Lymphocytes # (Auto) 2.9 Thou/mm3 (1.0-4.8); Lymphocytes % (Auto) 42 % (10-50); Mean Corpuscular HGB Conc 32.9 g/dl (31.0-37.0); Mean Corpuscular Hemoglobin 30.4 pg (25.0-35.0); Mean Corpuscular Volume 92 fL (80-100); Monocytes # (Auto) 0.7 Thou/mm3 (0.0-0.8); Monocytes % (Auto) 10 % (0-12); Neutrophils # (Auto) 2.9 Thou/mm3 (1.8-7.7); Neutrophils % (Auto) 43 % (37-80); Nucleated Red Blood Cell % 0 /100 WBC (0); Platelet Count 272 Thou/mm3 (140-440); RDW Standard Deviation 45.7 fL (35.1-43.9); Red Blood Count 4.61 Miln/mm3 (4.50-5.90); White Blood Count 6.8 Thou/mm3 (3.8-10.6)
[2024-08-20 10:15] LABS: Alanine Aminotransferase 37 U/L (10-49); Albumin, Serum 4.4 gm/dL (3.5-5.0); Albumin/Globulin Ratio 1.7 (1.2-2.2); Alkaline Phosphatase 60 U/L (46-116); Anion Gap 9 (7-16); Aspartate Amino Transferase 20 U/L (0-34); BUN/Creatinine Ratio 12 Ratio (12-20); Bilirubin,Total 0.4 mg/dL (0.3-1.2); Blood Urea Nitrogen 13 mg/dL (9-23); Calcium 9.3 mg/dL (8.3-10.6); Calcium (Corrected) 9.3 mg/dL (8.5-10.1); Carbon Dioxide 27.2 mMol/L (20.0-31.0); Chloride 106 mMol/L (98-107); Creatinine (Component) 1.1 mg/dL (0.6-1.3); Globulin 2.6 gm/dL (2.3-3.5); Glucose 104 mg/dL (74-106); Osmolality,Calculated 283 (275-295); Potassium 4.1 mMol/L (3.4-5.1); Sodium 142 mMol/L (136-145); eGFR > 60 See Note
== END | disposition home or self-care (01) ==
LOC: SCTO 08:42
PROVIDERS: Referring Provider Internal Medicine Hematology & Oncology; Visit Provider Internal Medicine Hematology & Oncology
DX: C18.7 Malignant neoplasm of sigmoid colon (principal)
CPT/HCPCS: 36415; 80053; 85025

== ENCOUNTER 2024-09-17 10:38 | Outpatient (RCR) | payer BC, SELFPAY ==
--- NOTE | 2024-09-17 11:20 | CTCFLWUP_ITS ---
[facility] [address] [place], [place] [address] FOLLOW-UP NOTE Date: 09/17/2024 MR#: [id number] Name: GABBY REZA : 1980 Dx: C18.7 Malignant neoplasm of sigmoid colon Identification. Patient with invasive adenocarcinoma sigmoid colon status post sigmoid colectomy 05/19/2024 stage IIa pT3pN0. Currently receiving capecitabine under Dr. Jaramillo's direction. Developed neuropathic symptoms and will be speaking with Hailey Mortensen RN today. Patient is no longer needing pain meds [place] 7.5 as prescribed during the postop period previously seen. Will be seeing Dr. Jaramillo for future oncological care. Electronically signed by: Dio Baig M.D. 09/17/2024 11:18 AM
== END 2024-09-24 23:59 | disposition home or self-care (01) ==
LOC: SCTC 10:38
PROVIDERS: Referring Provider Radiology Therapeutic Radiology; Visit Provider Radiology Therapeutic Radiology
DX: C18.7 Malignant neoplasm of sigmoid colon (principal); Z90.49 Acquired absence of other specified parts of digestive tract; G62.9 Polyneuropathy, unspecified
CPT/HCPCS: 99213; G0463